=== PATIENT | male | born 1955 | race Two or more races ===

== ENCOUNTER 2024-05-15 08:30 | Outpatient (REF) | payer MEDICARE, SELFPAY ==
[2024-05-15 09:49] LABS: Creatinine Urine 44.88 mg/dL; Microalbumin Urine < 5.0 mg/L
[2024-05-15 10:01] LABS: Alanine Aminotransferase 15 U/L (0-40); Albumin Level 4.3 g/dL (3.5-5.0); Alkaline Phosphatase 46 U/L (39-117); Anion Gap 13 (12-20); Aspartate Amino Transferase 20 U/L (5-37); Bilirubin Total 0.8 mg/dL (0.0-1.0); Blood Urea Nitrogen 23 mg/dL (9-16); Calcium 9.4 mg/dL (8.4-10.2); Carbon Dioxide 25 mmol/L (22-29); Chloride 107 mmol/L (96-108); Cholesterol 126 mg/dL (<200); Estimated Glomerular Filt Rate > 60; Glucose Fasting 122 mg/dL (60-99); HDL Cholesterol 44 mg/dL (>40); LDL Cholesterol Calculated 69 mg/dL (<100); Potassium 4.7 mmol/L (3.3-5.1); Sodium 140 mmol/L (135-145); Total Protein 7.6 g/dL (6.5-8.0); Triglycerides 65 mg/dL (<150)
[2024-05-15 10:02] LABS: Vitamin D 25-OH Total 29.1 ng/mL (>30)
== END 2024-05-15 08:31 | disposition home or self-care (01) ==
LOC: HO.LAB 08:30
PROVIDERS: PCP Internal Medicine; Visit Provider Internal Medicine
DX: E78.5 Hyperlipidemia, unspecified (principal); E11.9 Type 2 diabetes mellitus without complications; E55.9 Vitamin D deficiency, unspecified
CPT/HCPCS: 36415; 80053; 80061; 82306; 82570

== ENCOUNTER 2024-05-22 10:47 | Outpatient (AMB) | payer MEDICARE, SELFPAY ==
[2024-05-22 10:57] VITALS: BP 120/72; BMI 28.1
--- NOTE | 2024-05-22 10:57 | MHC.PC.OV ---
Vital Signs 05/22/24 10:57 Height 5 ft 8 in Weight 185 lb BMI 28.1 BP 120/72 Blood Pressure Location Lt brachial Position Sitting Intake Visit Reasons: dm Intake Note: Patient here for a follow up DM Pharmacy Informatics Manager Required: No Accompanied by: Self / Same As Patient Allergies pregabalin Allergy (Severe, Verified 05/22/24 11:08) Palpitations Penicillins Allergy (Intermediate, Verified 05/22/24 11:08) Diarrhea, itchy, red spots atorvastatin Adverse Reaction (Severe, Verified 05/22/24 11:08) pain Medication List - Last Reconciled 05/22/24 by Teetee Godwin MD blood sugar diagnostic (FreeStyle Lite Strips) Use 1 test strip once a day lancets (FreeStyle Lancets) Use 1 lancet once a day lisinopril 20 mg PO DAILY 90 days metformin 500 mg PO BID 90 days simvastatin 10 mg PO BEDTIME 90 days tamsulosin 0.4 mg PO DAILY 90 days Tobacco use date assessed: 05/22/24 Fall risk assessment: No Falls in past year Last assessed Fall Risk: 05/22/24 Dental Screening Dental Screen Date: 05/22/24 Did you have a dental visit in the last 12 months?: Yes Did you have a dental problem in the last 6 months where you did not have access to dental care?: No Was dental information given to patient?: Patient has dentist HPI HPI Comments History of Present Illness Details The patient is a 69-year-old male presenting for a routine follow-up visit to manage his chronic conditions. He is currently being treated for essential hypertension with Lisinopril 20 mg and maintains his blood pressure within the target range. His type 2 diabetes is well-controlled with Metformin 500 mg twice daily, as his A1c stands at 6%. Hyperlipidemia is managed with Simvastatin 10 mg, with current LDL levels well within the standard range. He also has a slightly low vitamin D level of 29.1 and was started on a low dose of vitamin D supplement. Prostate symptoms, characterized by weak urinary flow, have improved following the use of Tamsulosin. He reports allergies to Lyrica, Penicillin, and Atorvastatin. The patient displays no acute symptoms or significant lifestyle changes other than mild, dismissed body aches. He plans to have his next eye examination in about four months, having had one recently. He spends a significant amount of his day outdoors, which benefits his vitamin D levels naturally. [facility] [place] Medical History (Updated 05/22/24 @ 14:46 by Teetee Godwin MD) Diabetes mellitus with diabetic polyneuropathy, without long-term current use of insulin Neuropathic pain of right lower extremity Right leg paresthesias Sciatica, right side Right knee pain Left knee pain Surgical History H/O colonoscopy Hx of inguinal hernia surgery Family History Father Hypertension Diabetes mellitus Renal failure (ARF), acute on chronic Mother Myocardial infarction Social History Housing: House Alcohol intake: current Alcohol intake frequency: holidays/special occasions only Alcohol type: beer Patient Tobacco Use Status: Never used Tobacco e-Cigarette/Vaping Use: Never Used Second Hand Smoke Exposure: No service: Yes Current occupational status: retired Cognitive needs: No Hearing needs: No Vision needs: Yes (reading glasses) Questionnaire PHQ-9 Over the last 2 weeks, how often have you been bothered by any of the following problems? 1. Little interest or pleasure in doing things: not at all 2. Feeling down, depressed, or hopeless: not at all 3. Trouble falling or staying asleep, or sleeping too much: not at all 4. Feeling tired or having little energy: not at all 5. Poor appetite or overeating: not at all 6. Feeling bad about yourself - or that you are a failure or have let yourself or your family down: not at all 7. Trouble concentrating on things, such as reading the newspaper or watching television: not at all 8. Moving or speaking so slowly that other people could have noticed. Or the opposite - being so fidgety or restless that you have been moving around a lot more than usual: not at all 9. Thoughts that you would be better off or of hurting yourself in some way: not at all Total score: 0 Depression Screening Interpretation: Negative Depression Screening Done: Yes 20962 - PHQ-9 Billing: Yes Source: Developed by Drs. Sreedhar Enrique, William Cardenas and colleagues, with an educational kassandra from [employer]. Thrive Questionnaire Date Thrive assessed: 05/22/24 I am a: Patient What is your living situation today?: I have a steady place to live Within the past 12 months, did the food you bought not last and you didn't have the money to get more?: Never true Within the past 12 months, did you worry whether your food would run out before you got money to buy more?: Never true Do you have trouble paying for medicines?: No Do you have trouble getting transportation to medical appointments?: No Do you have trouble paying your heating and electricity bill?: No Do you have trouble taking care of your child, family member or friend?: No Do you have trouble with day-to-day activities such as bathing, preparing meals, shopping, managing finances, etc.?: No Are you currently unemployed and looking for a job?: No Are you interested in more education?: No Please select the resources that you would like help with: None Currently or been in a relationship where the following occur: No concerns reported THRIVE Score: 0 AUDIT C Alcohol Use Questionnaire (AUDIT-C) 1. How often do you have a drink containing alcohol?: Monthly or less 2. How many drinks containing alcohol do you have on a typical day when you are drinking?: 1 or 2 3. How often do you have six or more drinks on one occasion?: Never Total Score: 1 Score Reviewed/Action Taken: No KIRSTIN-7 AMB Questionnaire KIRSTIN-7 Date KIRSTIN - 7 assessed: 05/22/24 Feeling nervous, anxious, or on edge: 0 = Not at all Not being able to stop or control worryin = Not at all Worrying too much about different things: 0 = Not at all Trouble relaxin = Not at all Being so restless that it is hard to sit still: 0 = Not at all Becoming easily annoyed or irritable: 0 = Not at all Feeling afraid as if something awful might happen: 0 = Not at all Total KIRSTIN-7 score (0-4 normal; 5-9 mild; 10-14 moderate; 15-21 severe): 0 Source: Developed by Drs. Sreedhar Enrique, William Cardenas and colleagues, with an educational kassandra from [employer]. KIRSTIN-7 Assessment Billing KIRSTIN-7 Assessment Tool: KIRSTIN-7 Assessment 31375 Review of Systems Const All systems reviewed & are unremarkable except as noted in HPI and below Card Denies chest pain at rest, Denies chest pain with activity, Denies edema, Denies irregular heart rhythm, Denies claudication, Denies dyspnea, Denies dyspnea on exertion, Denies orthopnea, Denies paroxysmal nocturnal dyspnea and Denies slow heart rate Resp Denies cough, Denies dyspnea and Denies dyspnea on exertion GI Denies abdominal pain, Denies change in bowel habits, Denies excessive flatus, Denies nausea and Denies vomiting Denies urinary hesitancy, Denies urinary incontinence and Denies urinary urgency Musc Denies abnormal gait, Denies atrophy, Denies deformity and Denies limited range of motion Skin/Breast Denies bleeding lesions, Denies changing lesions and Denies rash Neuro Denies abnormal gait, Denies behavioral changes and Denies lack of coordination Psych Denies behavioral changes Physical exam (Primary Care) Vital Signs: Last Vital Signs BP 120/72 05/22/24 10:57 BMI result Body Mass Index 28.1 Tobacco/Smoking Status: Tobacco use Status Tobacco use date assessed 05/22/24 05/22/24 11:03 Patient Tobacco Use Status Never used Tobacco 05/22/24 11:03 Tobacco use type 01/10/24 09:17 e-Cigarette/Vaping Use Never Used 05/22/24 11:03 PHQ-9: PHQ-9 Score PHQ-9: Total score 0 05/22/24 11:11 Depression Screening Interpretation: Negative Thrive Assessment: Date of Thrive Assessment Date Thrive assessed 05/22/24 05/22/24 11:03 Currently or been in a relationship where the following occur: No concerns reported Resp Effort & Inspection: normal respiratory effort Auscultation: clear to auscultation bilaterally Cardio Jugular venous distension: no JVD Rate: regular rate Rhythm: regular rhythm Heart sounds: S1 normal heart sound present and S2 normal heart sound present Extrem General: Yes full ROM Results AMB Hemoglobin A1c AMB Hemoglobin A1c 6.0 % Last Edit by MARIA A Mccauley on 05/22/24 11:04 Results Reviewed Results Reviewed: Laboratory Last Values Hgb A1c (Clinic) 6.0 % (4.0-6.0) 05/22/24 10:55 Coding Level of Care Code Est Pt Level 4 (00435) Complex EM visit Add On G2211 Diagnoses Essential (primary) hypertension I10 Hyperlipidemia E78.5 Diabetes type 2, controlled E11.9 BPH associated with nocturia N40.1; R35.1 Hypovitaminosis D E55.9 Additional Codes KIRSTIN-7 Assessment Billing - KIRSTIN-7 Assessment Tool: KIRSTIN-7 Assessment 70607 ([id number]) PHQ-9 - 13887 - PHQ-9 Billing: Yes ([id number]) Time Spent (min) 23 Assessment & Plan Assessment & Plan (1) Essential (primary) hypertension: Code(s): I10 - Essential (primary) hypertension Category: Medical (2) Hyperlipidemia: Code(s): E78.5 - Hyperlipidemia, unspecified Category: Medical (3) Diabetes type 2, controlled: Onset Date: ~2005 Code(s): E11.9 - Type 2 diabetes mellitus without complications Category: Medical (4) BPH associated with nocturia: Code(s): N40.1 - Benign prostatic hyperplasia with lower urinary tract symptoms; R35.1 - Nocturia Category: Medical (5) Hypovitaminosis D: Code(s): E55.9 - Vitamin D deficiency, unspecified Category: Medical Plan The patient will continue current management with Lisinopril for hypertension, Metformin for diabetes with an excellent A1c of 6%, and Simvastatin for hyperlipidemia since LDL is within the target range. A low-dose vitamin D supplement has been added to address the deficiency. Improvement in urinary symptoms with Tamsulosin will be monitored. Regular follow-ups are scheduled to ensure ongoing control of chronic conditions, and adherence to the management plan is crucial for continued success. Patient was informed and verbally consented to the use of an ambient scribe for clinic note documentation during this visit. I discussed with the patient that his hypertension, diabetes, and hyperlipidemia are well-controlled with the current medication regimen. I explained the importance of maintaining this regimen and assured him that his slightly low vitamin D level is manageable with low-dose supplementation. Enabling him to understand the potential consequences of non-compliance, he agreed to adhere to the treatment plan. We reviewed the positive outcomes of his current therapies and reinforced the benefits of ongoing outdoor activity, which supports vitamin D synthesis naturally. Follow-up plans include a regular review of these conditions and continued monitoring of renal and liver functions. Orders: Orders AMB Hemoglobin A1c Today E11.42 - Type 2 diabetes mellitus with diabetic polyneuropathy Comprehensive [place]. Panel Fast 4 Months E11.42 - Type 2 diabetes mellitus with diabetic polyneuropathy Lipid Panel 4 Months E78.5 - Hyperlipidemia, unspecified Microalbumin, Random (w Creat) 4 Months R80.9 - Proteinuria, unspecified Vitamin D 25-OH Total 4 Months E55.9 - Vitamin D deficiency, unspecified Medications: New cholecalciferol (vitamin D3) 25 mcg PO DAILY 90 caps 3RF 90 days Patient Instructions: - Continue taking all prescribed medications as directed. - Begin taking a low-dose vitamin D supplement as prescribed. - Spend time outdoors daily to benefit from natural vitamin D exposure. - Schedule and attend your next eye examination as planned. - Adhere strictly to prescribed medication to maintain blood pressure, blood sugar, and lipid control. - Report any new symptoms or changes in health promptly. - Maintain regular follow-up appointments for chronic condition monitoring.
== END 2024-05-22 11:17 | disposition home or self-care (01) ==
LOC: HO.HMCH 10:47
PROVIDERS: PCP Internal Medicine; Visit Provider Internal Medicine
DX: I10 Essential (primary) hypertension (principal); E78.5 Hyperlipidemia, unspecified; E11.42 Type 2 diabetes mellitus with diabetic polyneuropathy; N40.1 Benign prostatic hyperplasia with lower urinary tract symptoms; R35.1 Nocturia; E55.9 Vitamin D deficiency, unspecified

== ENCOUNTER → 2024-05-22 10:47 | Outpatient (BNVA) | payer MEDICARE, SELFPAY | PROVIDERS: PCP Internal Medicine; Visit Provider Internal Medicine | DX: I10 Essential (primary) hypertension (principal); E78.5 Hyperlipidemia, unspecified; E11.9 Type 2 diabetes mellitus without complications; N40.1 Benign prostatic hyperplasia with lower urinary tract symptoms; R35.1 Nocturia; E55.9 Vitamin D deficiency, unspecified | CPT/HCPCS: 83036; 96127; 99212 ==

== ENCOUNTER 2024-08-10 09:21 | Outpatient (AMB) | payer MEDICARE, SELFPAY ==
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
[2024-08-10 09:46] VITALS: BP 140/78; BMI 28.1
== END 2024-08-10 10:37 | disposition home or self-care (01) ==
LOC: HO.HMCH 09:22
PROVIDERS: PCP Internal Medicine; Visit Provider Internal Medicine
DX: M25.551 Pain in right hip (principal); E11.9 Type 2 diabetes mellitus without complications; I10 Essential (primary) hypertension; E78.5 Hyperlipidemia, unspecified

== ENCOUNTER → 2024-08-10 09:21 | Outpatient (BNVA) | payer OTHER, MEDICARE, SELFPAY | PROVIDERS: PCP Internal Medicine; Visit Provider Internal Medicine | DX: M25.551 Pain in right hip (principal); M79.604 Pain in right leg; M25.571 Pain in right ankle and joints of right foot; I10 Essential (primary) hypertension; E11.9 Type 2 diabetes mellitus without complications; E78.5 Hyperlipidemia, unspecified; R80.9 Proteinuria, unspecified; E55.9 Vitamin D deficiency, unspecified | CPT/HCPCS: 96127; 99212 ==

== ENCOUNTER 2024-08-16 08:55 | Outpatient (REF) | payer MEDICARE, SELFPAY ==
[2024-08-16 10:30] LABS: Creatinine Urine 95.95 mg/dL; Microalbumin Urine < 5.0 mg/L
[2024-08-16 10:35] LABS: Alanine Aminotransferase 14 U/L (0-40); Albumin Level 4.6 g/dL (3.5-5.0); Alkaline Phosphatase 46 U/L (39-117); Anion Gap 9 (12-20); Aspartate Amino Transferase 24 U/L (5-37); Bilirubin Total 0.7 mg/dL (0.0-1.0); Blood Urea Nitrogen 20 mg/dL (9-16); Calcium 9.4 mg/dL (8.4-10.2); Carbon Dioxide 29 mmol/L (22-29); Chloride 109 mmol/L (96-108); Cholesterol 163 mg/dL (<200); Estimated Glomerular Filt Rate 55; Glucose Fasting 127 mg/dL (60-99); HDL Cholesterol 47 mg/dL (>40); LDL Cholesterol Calculated 101 mg/dL (<100); Sodium 142 mmol/L (135-145); Total Protein 7.3 g/dL (6.5-8.0); Triglycerides 79 mg/dL (<150)
[2024-08-16 10:40] LABS: Vitamin D 25-OH Total 35.6 ng/mL (>30)
== END 2024-08-16 08:56 | disposition home or self-care (01) ==
LOC: HO.LAB 08:55
PROVIDERS: PCP Internal Medicine; Visit Provider Internal Medicine
DX: R80.9 Proteinuria, unspecified (principal); E55.9 Vitamin D deficiency, unspecified; E78.5 Hyperlipidemia, unspecified; E11.9 Type 2 diabetes mellitus without complications
CPT/HCPCS: 36415; 80053; 80061; 82043; 82306; 82570

== ENCOUNTER 2024-10-18 10:38 | Outpatient (AMB) | payer MEDICARE, SELFPAY ==
[2024-10-18 10:50] VITALS: BP 136/68; PULSE 65; RESP 18; TEMP 36.3; O2SAT 98; BMI 27.5
--- NOTE | 2024-10-18 10:50 | MHC.PC.OV ---
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 Accompanied by: Self / Same As Patient Allergies pregabalin Allergy (Severe, Verified 10/18/24 11:05) Palpitations Penicillins Allergy (Intermediate, Verified 10/18/24 11:05) Diarrhea, itchy, red spots atorvastatin Adverse Reaction (Severe, Verified 10/18/24 11:05) pain Medication List - Last Reconciled 10/18/24 by Teetee Godwin MD blood sugar diagnostic (FreeStyle Lite Strips) Use 1 test strip once a day celecoxib (Celebrex) 200 mg PO BID PRN 30 days cholecalciferol (vitamin D3) 25 mcg PO DAILY 90 days docusate sodium 100 mg PO BID PRN 30 days lancets (FreeStyle Lancets) Use 1 lancet once a day lisinopril 20 mg PO DAILY 90 days metformin 500 mg PO BID 90 days simvastatin 10 mg PO BEDTIME 90 days tamsulosin 0.4 mg PO DAILY 90 days Tobacco use date assessed: 10/18/24 Fall risk assessment: No Falls in past year Last assessed Fall Risk: 10/18/24 Dental Screening Dental Screen Date: 10/18/24 Did you have a dental visit in the last 12 months?: Yes Did you have a dental problem in the last 6 months where you did not have access to dental care?: No Was dental information given to patient?: Patient has dentist HPI HPI Comments History of Present Illness Details The patient is a 69-year-old male presenting for follow-up of diabetes and other chronic conditions. The patient has a history of diabetes mellitus, which is being monitored with regular A1c tests. He is currently on Metformin 500 mg twice daily for glycemic control. The patient also has chronic kidney disease, stage 3, with a GFR of 55, which is being monitored. He is advised to maintain good blood pressure and glucose control to prevent further renal damage. Hyperlipidemia is another concern, with LDL levels not at target. The patient was previously on simvastatin, which caused adverse effects, and has been switched to ezetimibe 10 mg. The patient has hypertension, managed with lisinopril 20 mg, which is effectively controlling his blood pressure. He reports constipation, for which a liquid laxative has been prescribed for use as needed. The patient experiences gastroesophageal reflux disease and has been prescribed medication to manage this condition. He has allergies to pregabalin, penicillin, and atorvastatin, which cause palpitations, diarrhea, and muscle pain, respectively. REPLACED BY [facility] Medical History Diabetes mellitus with diabetic polyneuropathy, without long-term current use of insulin Neuropathic pain of right lower extremity Right leg paresthesias Sciatica, right side Right knee pain Left knee pain Surgical History H/O colonoscopy Hx of inguinal hernia surgery Family History Father Hypertension Diabetes mellitus Renal failure (ARF), acute on chronic Mother Myocardial infarction Social History Housing: House Alcohol intake: current Alcohol intake frequency: holidays/special occasions only Alcohol type: beer Patient Tobacco Use Status: Never used Tobacco e-Cigarette/Vaping Use: Never Used Second Hand Smoke Exposure: No service: Yes Current occupational status: retired Cognitive needs: No Hearing needs: No Vision needs: Yes (reading glasses) Questionnaire PHQ-9 Over the last 2 weeks, how often have you been bothered by any of the following problems? 1. Little interest or pleasure in doing things: several days 2. Feeling down, depressed, or hopeless: several days 3. Trouble falling or staying asleep, or sleeping too much: several days 4. Feeling tired or having little energy: several days 5. Poor appetite or overeating: not at all 6. Feeling bad about yourself - or that you are a failure or have let yourself or your family down: not at all 7. Trouble concentrating on things, such as reading the newspaper or watching television: not at all 8. Moving or speaking so slowly that other people could have noticed. Or the opposite - being so fidgety or restless that you have been moving around a lot more than usual: several days 9. Thoughts that you would be better off or of hurting yourself in some way: several days Total score: 6 Depression Screening Interpretation: Positive Depression Screening Follow-up: Existing condition, Follow-up Visit Requested and Declines treatment Depression Screening Done: Yes 96854 - PHQ-9 Billing: Yes Source: Developed by Drs. Sreedhar Enrique, Lucretia Garsia, William Lawson and colleagues, with an educational kassandra from [employer]. Thrive Questionnaire Date Thrive assessed: 10/18/24 AUDIT C Alcohol Use Questionnaire (AUDIT-C) 1. How often do you have a drink containing alcohol?: Never Total Score: 0 Score Reviewed/Action Taken: No KIRSTIN-7 AMB Questionnaire KIRSTIN-7 Date KIRSTIN - 7 assessed: 10/18/24 Feeling nervous, anxious, or on edge: 0 = Not at all Not being able to stop or control worryin = Not at all Worrying too much about different things: 0 = Not at all Trouble relaxin = Not at all Being so restless that it is hard to sit still: 0 = Not at all Becoming easily annoyed or irritable: 0 = Not at all Feeling afraid as if something awful might happen: 0 = Not at all Total KIRSTIN-7 score (0-4 normal; 5-9 mild; 10-14 moderate; 15-21 severe): 0 Source: Developed by Drs. Sreedhar Enrique, Lucretia Garsia, William Lawson and colleagues, with an educational kassandra from [employer]. KIRSTIN-7 Assessment Billing KIRSTIN-7 Assessment Tool: KIRSTIN-7 Assessment 18021 Review of Systems Const All systems reviewed & are unremarkable except as noted in HPI and below Card Denies chest pain at rest, Denies chest pain with activity, Denies edema, Denies irregular heart rhythm, Denies claudication, Denies dyspnea, Denies dyspnea on exertion, Denies orthopnea, Denies paroxysmal nocturnal dyspnea and Denies slow heart rate Resp Denies cough, Denies dyspnea and Denies dyspnea on exertion GI Denies abdominal pain, Denies change in bowel habits, Denies excessive flatus, Denies nausea and Denies vomiting Physical exam (Primary Care) Vital Signs: Last Vital Signs Temp 97.3 F 10/18/24 10:50 Pulse 65 10/18/24 10:50 Resp 18 10/18/24 10:50 BP 136/68 10/18/24 10:50 Pulse Ox 98 10/18/24 10:50 Oxygen Delivery Method Room Air 10/18/24 10:50 BMI result Body Mass Index 27.5 Tobacco/Smoking Status: Tobacco use Status Tobacco use date assessed 10/18/24 10/18/24 11:02 Patient Tobacco Use Status Never used Tobacco 10/18/24 11:02 Tobacco use type 01/10/24 09:17 e-Cigarette/Vaping Use Never Used 10/18/24 11:02 PHQ-9: PHQ-9 Score PHQ-9: Total score 6 10/18/24 11:23 Depression Screening Interpretation: Positive Depression Screening Follow-up: Existing condition, Follow-up Visit Requested and Declines treatment Thrive Assessment: Date of Thrive Assessment Date Thrive assessed 10/18/24 10/18/24 11:02 Resp Effort & Inspection: normal respiratory effort Auscultation: clear to auscultation bilaterally Cardio Jugular venous distension: no JVD Rate: regular rate Rhythm: regular rhythm Heart sounds: S1 normal heart sound present and S2 normal heart sound present Extrem General: Yes full ROM Results AMB Hemoglobin A1c AMB Hemoglobin A1c 5.9 % Last Edit by MARIA A Blanco on 10/18/24 11:24 Results Reviewed Results Reviewed: Laboratory Last Values Hgb A1c (Clinic) 5.9 % (4.0-6.0) 10/18/24 11:08 Coding Level of Care Code Est Pt Level 4 (70649) Complex EM visit Add On G2211 Diagnoses CKD (chronic kidney disease) stage 3, GFR 30-59 ml/min N18.30 Essential (primary) hypertension I10 Diabetes type 2, controlled E11.9 Hyperlipidemia E78.5 Hypovitaminosis D E55.9 GERD (gastroesophageal reflux disease) K21.9 Chronic idiopathic constipation K59.04 Additional Codes KIRSTIN-7 Assessment Billing - KIRSTIN-7 Assessment Tool: KIRSTIN-7 Assessment 99939 ([id number]) PHQ-9 - 17891 - PHQ-9 Billing: Yes ([id number]) Time Spent (min) 23 Assessment & Plan Assessment & Plan (1) CKD (chronic kidney disease) stage 3, GFR 30-59 ml/min: Code(s): N18.30 - Chronic kidney disease, stage 3 unspecified Category: Medical (2) Essential (primary) hypertension: Code(s): I10 - Essential (primary) hypertension Category: Medical (3) Diabetes type 2, controlled: Onset Date: ~2005 Code(s): E11.9 - Type 2 diabetes mellitus without complications Category: Medical (4) Hyperlipidemia: Code(s): E78.5 - Hyperlipidemia, unspecified Category: Medical (5) Hypovitaminosis D: Code(s): E55.9 - Vitamin D deficiency, unspecified Category: Medical (6) GERD (gastroesophageal reflux disease): Code(s): K21.9 - Gastro-esophageal reflux disease without esophagitis Category: Medical (7) Chronic idiopathic constipation: Code(s): K59.04 - Chronic idiopathic constipation Category: Medical Plan The patient's diabetes management includes continuing Metformin 500 mg twice daily, with regular monitoring of A1c levels to assess glycemic control. For chronic kidney disease, stage 3, the focus is on maintaining optimal blood pressure and glucose levels to prevent further renal impairment. Hyperlipidemia management involves switching from simvastatin to ezetimibe 10 mg due to adverse reactions, with the goal of achieving LDL levels below 70 mg/dL. Hypertension is managed with lisinopril 20 mg, which is effectively controlling the patient's blood pressure. For constipation, a liquid laxative is prescribed for use as needed. Gastroesophageal reflux disease is addressed with appropriate medication to manage symptoms. The patient is advised to avoid NSAIDs like ibuprofen to prevent further kidney damage and is scheduled for follow-up labs in December. Patient was informed and verbally consented to the use of an ambient scribe for clinic note documentation during this visit. Orders: Orders AMB Hemoglobin A1c Today Z13.9 - Encounter for screening, unspecified Comprehensive [place]. Panel Fast 3 Months E11.9 - Type 2 diabetes mellitus without complications Vitamin D 25-OH Total 3 Months E55.9 - Vitamin D deficiency, unspecified Lipid Panel 3 Months E78.5 - Hyperlipidemia, unspecified Microalbumin, Random (w Creat) 3 Months R80.9 - Proteinuria, unspecified Medications: New ezetimibe 10 mg PO DAILY 90 tabs 0RF 90 days omeprazole 20 mg PO DAILY PRN 90 caps 1RF heartburn 90 days lactulose 15 mL PO TID PRN 1,200 mL 3RF constipation 30 days K59.04 - Chronic idiopathic constipation Discontinued docusate sodium Discontinued Reason: Patient Completed Course 100 mg PO BID 30 days PRN 60 caps 2RF constipation simvastatin Discontinued Reason: Patient Completed Course 10 mg PO BEDTIME 90 days 90 tabs 1RF
== END 2024-10-18 11:19 | disposition home or self-care (01) ==
LOC: HO.HMCH 10:39
PROVIDERS: PCP Internal Medicine; Visit Provider Internal Medicine
DX: N18.30 Chronic kidney disease, stage 3 unspecified (principal); I10 Essential (primary) hypertension; E11.9 Type 2 diabetes mellitus without complications; E78.5 Hyperlipidemia, unspecified; E55.9 Vitamin D deficiency, unspecified; K21.9 Gastro-esophageal reflux disease without esophagitis; K59.04 Chronic idiopathic constipation; Z13.9 Encounter for screening, unspecified

== ENCOUNTER → 2024-10-18 10:38 | Outpatient (BNVA) | payer MEDICARE, SELFPAY | PROVIDERS: PCP Internal Medicine; Visit Provider Internal Medicine | DX: I12.9 Hypertensive chronic kidney disease with stage 1 through stage 4 chronic kidney disease, or unspecified chronic kidney disease (principal); E11.22 Type 2 diabetes mellitus with diabetic chronic kidney disease; N18.30 Chronic kidney disease, stage 3 unspecified; E78.5 Hyperlipidemia, unspecified; E55.9 Vitamin D deficiency, unspecified; K21.9 Gastro-esophageal reflux disease without esophagitis; K59.04 Chronic idiopathic constipation | CPT/HCPCS: 83036; 96127; 99212 ==

== ENCOUNTER 2025-01-02 07:39 | Outpatient (REF) | payer MEDICARE, SELFPAY ==
[2025-01-02 08:58] LABS: Alanine Aminotransferase 20 U/L (0-40); Albumin Level 4.4 g/dL (3.5-5.0); Alkaline Phosphatase 46 U/L (39-117); Anion Gap 10 (12-20); Aspartate Amino Transferase 27 U/L (5-37); Blood Urea Nitrogen 22 mg/dL (9-16); Calcium 9.1 mg/dL (8.4-10.2); Carbon Dioxide 28 mmol/L (22-29); Chloride 109 mmol/L (96-108); Cholesterol 168 mg/dL (<200); Estimated Glomerular Filt Rate 58; HDL Cholesterol 41 mg/dL (>40); Potassium 4.3 mmol/L (3.3-5.1); Sodium 143 mmol/L (135-145); Total Protein 7.1 g/dL (6.5-8.0); Triglycerides 80 mg/dL (<150)
== END 2025-01-02 07:40 | disposition home or self-care (01) ==
LOC: HO.LAB 07:39
PROVIDERS: PCP Internal Medicine; Visit Provider Internal Medicine
DX: E11.42 Type 2 diabetes mellitus with diabetic polyneuropathy (principal); I10 Essential (primary) hypertension; E78.5 Hyperlipidemia, unspecified; E55.9 Vitamin D deficiency, unspecified; R80.9 Proteinuria, unspecified
CPT/HCPCS: 36415; 80053; 80061; 82043; 82306; 82570

== ENCOUNTER 2025-01-10 09:50 | Outpatient (AMB) | payer MEDICARE, SELFPAY ==
[2025-01-10 10:26] VITALS: BP 132/60; PULSE 58; RESP 18; TEMP 36.3; O2SAT 97; BMI 26.8
--- NOTE | 2025-01-10 10:26 | MHC.PC.OV ---
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 Accompanied by: Self / Same As Patient Allergies pregabalin Allergy (Severe, Verified 01/10/25 11:09) Palpitations Penicillins Allergy (Intermediate, Verified 01/10/25 11:09) Diarrhea, itchy, red spots atorvastatin Adverse Reaction (Severe, Verified 01/10/25 11:09) pain Medication List - Last Reconciled 01/10/25 by Teetee Godwin MD blood sugar diagnostic (FreeStyle Lite Strips) Use 1 test strip once a day celecoxib (Celebrex) 200 mg PO BID PRN 30 days cholecalciferol (vitamin D3) 25 mcg PO DAILY 90 days ezetimibe 10 mg PO DAILY 90 days lactulose 15 mL PO TID PRN 30 days lancets (FreeStyle Lancets) Use 1 lancet once a day lisinopril 20 mg PO DAILY 90 days metformin 500 mg PO BID 90 days omeprazole 20 mg PO DAILY PRN 90 days tamsulosin 0.4 mg PO DAILY 90 days Tobacco use date assessed: 01/10/25 Fall risk assessment: No Falls in past year Last assessed Fall Risk: 01/10/25 Dental Screening Dental Screen Date: 01/10/25 Did you have a dental visit in the last 12 months?: Yes Did you have a dental problem in the last 6 months where you did not have access to dental care?: No Was dental information given to patient?: Patient has dentist HPI HPI Comments History of Present Illness Details The patient is a 69-year-old male presenting for an annual physical exam. He has a history of hypertension and diabetes. He denies smoking and reports drinking beer on special occasions. He also has chronic kidney disease stage 3 with a GFR of 58 in which no further evaluation or treatment is needed at this point. His last colonoscopy was in 2019 and was normal, with the next one recommended in 2030. Recent vaccinations include an RSV shot. Pneumonia, flu, and tetanus vaccine status is not documented in the office record. Recent laboratory results show an A1c of 5.9%. His LDL cholesterol is 111, while his HDL is normal at 41. Renal function is noted to be 58, and urine protein is normal. The patient reports experiencing blurry vision for the last two to three months. He will follow-up with ophthalmology regarding this matter. He does complains of bilateral shoulder pain and bilateral hip pain as well as chronic right lower leg pain that has been present for few months. He does have full active range of motion. [facility] Medical History (Updated 01/10/25 @ 11:25 by Teetee Godwin MD) Diabetes mellitus with diabetic polyneuropathy, without long-term current use of insulin Neuropathic pain of right lower extremity Right leg paresthesias Sciatica, right side Right knee pain Left knee pain Surgical History H/O colonoscopy Hx of inguinal hernia surgery Family History Father Hypertension Diabetes mellitus Renal failure (ARF), acute on chronic Mother Myocardial infarction Social History Housing: House Alcohol intake: current Alcohol intake frequency: holidays/special occasions only Alcohol type: beer Patient Tobacco Use Status: Never used Tobacco e-Cigarette/Vaping Use: Never Used Second Hand Smoke Exposure: No service: Yes Current occupational status: retired Cognitive needs: No Hearing needs: No Vision needs: Yes (reading glasses) Questionnaire Thrive Questionnaire Date Thrive assessed: 10/18/24 KIRSTIN-7 AMB Questionnaire KIRSTIN-7 Date KIRSTIN - 7 assessed: 10/18/24 Source: Developed by Drs. Sreedhar Enrique, Lucretia Garsia, William Lawson and colleagues, with an educational kassandra from [employer]). Review of Systems Const All systems reviewed & are unremarkable except as noted in HPI and below Card Denies chest pain at rest, Denies chest pain with activity, Denies edema, Denies irregular heart rhythm, Denies claudication, Denies dyspnea, Denies dyspnea on exertion, Denies orthopnea, Denies paroxysmal nocturnal dyspnea and Denies slow heart rate Resp Denies cough, Denies dyspnea and Denies dyspnea on exertion Physical exam (Primary Care) Vital Signs: Last Vital Signs Temp 97.3 F 01/10/25 10:26 Pulse 58 01/10/25 10:26 Resp 18 01/10/25 10:26 BP 132/60 01/10/25 10:26 Pulse Ox 97 01/10/25 10:26 Oxygen Delivery Method Room Air 01/10/25 10:26 BMI result Body Mass Index 26.8 Tobacco/Smoking Status: Tobacco use Status Tobacco use date assessed 01/10/25 01/10/25 10:30 Patient Tobacco Use Status Never used Tobacco 01/10/25 10:30 Tobacco use type 01/10/24 09:17 e-Cigarette/Vaping Use Never Used 01/10/25 10:30 Thrive Assessment: Date of Thrive Assessment Date Thrive assessed 10/18/24 01/10/25 10:30 HENMT Head: Yes normal to inspection, Yes normocephalic and Yes atraumatic Ears: external ears normal Eyes General: appearance normal, both eyes and all related structures Eyelids: Yes eyelids normal Conjunctivae: conjunctivae normal Neck Neck: Yes normal visual inspection and Yes supple Resp Effort & Inspection: normal respiratory effort Auscultation: clear to auscultation bilaterally Cardio Jugular venous distension: no JVD Rate: regular rate Rhythm: regular rhythm Heart sounds: S1 normal heart sound present and S2 normal heart sound present GI Inspection: Yes normal to inspection Palpation (GI): Soft to palpation and nontender Auscultation: normal bowel sounds Skin General skin exam: no rashes or lesions noted Neuro General: no focal motor deficits Extrem General: Yes full ROM Psych Appearance: grossly normal Coding Level of Care Code Est Pt Level 4 (03930) Est Pt Prev Care >65y(62497) Diagnoses Physical exam Z00.00 Right shoulder pain M25.511 Left shoulder pain M25.512 Right hip pain M25.551 Left hip pain M25.552 Diabetes type 2, controlled E11.9 CKD (chronic kidney disease) stage 3, GFR 30-59 ml/min N18.30 Time Spent (min) 36 Assessment & Plan Assessment & Plan (1) Physical exam: Code(s): Z00.00 - Encounter for general adult medical examination without abnormal findings Category: Medical (2) Right shoulder pain: Code(s): M25.511 - Pain in right shoulder Category: Medical (3) Left shoulder pain: Code(s): M25.512 - Pain in left shoulder Category: Medical (4) Right hip pain: Code(s): M25.551 - Pain in right hip Category: Medical (5) Left hip pain: Code(s): M25.552 - Pain in left hip Category: Medical (6) Diabetes type 2, controlled: Onset Date: ~2005 Code(s): E11.9 - Type 2 diabetes mellitus without complications Category: Medical (7) CKD (chronic kidney disease) stage 3, GFR 30-59 ml/min: Code(s): N18.30 - Chronic kidney disease, stage 3 unspecified Category: Medical Plan Plan 1. Physical exam Continue diabetic eye exam yearly. Colonoscopy for 2030. Repeat physical exam in a year. 2. Diabetes Mellitus The patient has a history of diabetes, and his recent A1c is 5.9%. Management will continue with a focus on cardiovascular risk reduction, including aggressive lipid management. 3. Bilateral shoulder and hip pain X-rays ordered. 4. Chronic kidney disease stage 3 No further evaluation or management needed at this point. Orders: Orders XR shoulder RT min 2V Today M25.511 - Pain in right shoulder XR hip RT min 2V Today M25.551 - Pain in right hip XR hip LT min 2V Today M25.552 - Pain in left hip Lipid Panel 4 Months E78.5 - Hyperlipidemia, unspecified Microalbumin, Random (w Creat) 4 Months R80.9 - Proteinuria, unspecified Vitamin D 25-OH Total 4 Months E55.9 - Vitamin D deficiency, unspecified XR shoulder LT min 2V Today M25.512 - Pain in left shoulder Vitamin B12 and Folate 4 Months E53.8 - Deficiency of other specified B group vitamins Comprehensive [place]. Panel Fast 4 Months N18.30 - Chronic kidney disease, stage 3 unspecified Medications: New rosuvastatin 10 mg PO BEDTIME 90 tabs 1RF 90 days E78.5 - Hyperlipidemia, unspecified
== END 2025-01-10 11:24 | disposition home or self-care (01) ==
PROVIDERS: PCP Internal Medicine; Visit Provider Internal Medicine
DX: Z00.00 Encounter for general adult medical examination without abnormal findings (principal); M25.511 Pain in right shoulder; E11.9 Type 2 diabetes mellitus without complications; N18.30 Chronic kidney disease, stage 3 unspecified; M25.512 Pain in left shoulder; M25.551 Pain in right hip; M25.552 Pain in left hip

== ENCOUNTER → 2025-01-10 09:50 | Outpatient (BNVA) | payer MEDICARE, SELFPAY | PROVIDERS: PCP Internal Medicine; Visit Provider Internal Medicine | DX: Z00.00 Encounter for general adult medical examination without abnormal findings (principal); E11.22 Type 2 diabetes mellitus with diabetic chronic kidney disease; I12.9 Hypertensive chronic kidney disease with stage 1 through stage 4 chronic kidney disease, or unspecified chronic kidney disease; N18.30 Chronic kidney disease, stage 3 unspecified; H53.8 Other visual disturbances; M25.511 Pain in right shoulder; M25.512 Pain in left shoulder; M25.551 Pain in right hip; M25.552 Pain in left hip; M79.604 Pain in right leg; E78.5 Hyperlipidemia, unspecified | CPT/HCPCS: 99212; 99397 ==

== ENCOUNTER 2025-01-16 15:13 | Outpatient (REF) | payer MEDICARE, SELFPAY ==
--- NOTE | ~2025-01-16 | XR_ITS ---
EXAMINATION: XR BILATERAL HIPS CLINICAL INFORMATION: M25.551 - Pain in right hip COMPARISON: None available. TECHNIQUE: AP and lateral views of each hip were obtained. FINDINGS: Mild to moderate symmetric degenerative arthritis of both hip joints present with small subcapital spurs, and superolateral acetabular spurring. Mild subchondral sclerosis with only minimal joint space narrowing present. Normal acetabular coverage. Normal femoral head contours without evidence of AVN. No evidence of fracture, dislocation, or bone lesion. There are herniorrhaphy clips overlying the right inferior pelvis. There are arthritic changes in both SI joints. Soft tissues demonstrate vascular calcifications. XR/XR hips HENRY min 3V IMPRESSION: Mild to moderate osteoarthrosis of both hip joints symmetrically. Electronically signed by: Alessandro Maxwell MD 01/16/2025 04:06 PM RICK MALDONADO
--- NOTE | ~2025-01-16 | XR_ITS ---
EXAMINATION: X-ray bilateral shoulders CLINICAL INFORMATION: Pain COMPARISON: None TECHNIQUE: Bilateral shoulders each 4 views FINDINGS: Right shoulder: Moderate acromioclavicular arthritis. Subacromial spurring. Mild glenohumeral arthritis. No acute fracture or dislocation. No abnormal soft tissue calcification. Left shoulder: Moderate acromioclavicular arthritis. Subacromial spurring. Glenohumeral joint space is maintained. Arthritis. No acute fracture or dislocation. XR/XR Shoulder Kamran min 2V IMPRESSION: Right shoulder: Moderate acromioclavicular arthritis. Mild joint arthritis. Left shoulder: Moderate acromioclavicular arthritis. Electronically signed by: Joseph Arrington MD 01/17/2025 03:19 PM RICK MALDONADO
== END 2025-01-16 15:14 | disposition home or self-care (01) ==
LOC: HO.XRAY 15:13
PROVIDERS: PCP Internal Medicine; Visit Provider Internal Medicine
DX: M25.511 Pain in right shoulder (principal); M25.551 Pain in right hip
CPT/HCPCS: 73030; 73522

== ENCOUNTER → 2025-01-16 15:18 | Outpatient (BNV) | payer MEDICARE, SELFPAY | PROVIDERS: PCP Internal Medicine; Visit Provider Radiology Diagnostic Radiology | DX: M19.011 Primary osteoarthritis, right shoulder (principal); M19.012 Primary osteoarthritis, left shoulder | CPT/HCPCS: 73030; 73522 ==